=== PATIENT | female | born 1985 | race Caucasian/White ===

== ENCOUNTER 2016-11-26 22:30 | Emergency (ER) | payer BC ==
[~2016-11-26] VITALS: Ht 160 cm; Wt 50.0 kg
[~2016-11-26 22:30] MED LIST: ALPR0.5T PO; BC PILLS; LORA1TAB PO
[2016-11-26 22:51] VITALS: Ht 160 cm; Wt 50.0 kg
[2016-11-27 00:04] LABS: URINE BLOOD (Dip) POC Negative (NEGATIVE)
--- NOTE | 2016-11-27 00:10 | ERD ---
ER Documentation Chief Complaint Date/Time DATE: 11/27/16 TIME: 00:10 Chief Complaint Pelvic pain with discharge x 2 weeks HPI This a 31-year-old female who presents to the emergency department today complaining of some pelvic pain for the past 2 weeks, frequent urination and vaginal discharge. Patient states that she has also had painful intercourse and states she has 1 partner. Denies any fevers or chills, nausea or vomiting. ROS All systems reviewed and are negative except as per history of present illness. Medications Home Meds Active Scripts Metronidazole* (Metrogel*) 0.75% -45 Gram Gel, 1 APPLIC TOP BID for 7 Days, #1 TUB Prov:KELI GAYTAN PA-C 11/27/16 Naproxen* (Naprosyn*) 500 Mg Tablet, 500 MG PO BID Y for PAIN AND/OR INFLAMMATION, #30 TAB Prov:KELI GAYTAN PA-C 11/27/16 Lorazepam* (Lorazepam*) 1 Mg Tablet, 0.5-1 MG PO BID Y for ANXIETY, #18 TAB Prov:URSULA SHARPE MD 07/10/16 Alprazolam* (Xanax*) 0.5 Mg Tab, 0.5 MG PO Q8H Y for ANXIETY, #10 TAB Prov:VERONICA MCGINNIS PA-C 07/05/16 Reported Medications [Bc Pills] No Conflict Check 10/26/12 Allergies Allergies: Coded Allergies: No Known Allergy (Unverified , 10/26/12) PMhx/Soc Medical and Surgical Hx: pt denies Medical Hx, pt denies Surgical Hx History of Surgery: No Anesthesia Reaction: No Hx Neurological Disorder: No Hx Respiratory Disorders: No Hx Cardiac Disorders: No Hx Psychiatric Problems: No Hx Miscellaneous Medical Probl: No Hx Alcohol Use: No Hx Substance Use: No Hx Tobacco Use: No Physical Exam Vitals Vital Signs Date Time Temp Pulse Resp B/P Pulse Ox O2 Delivery O2 Flow Rate FiO2 11/26/16 22:51 97.4 90 18 140/88 100 Physical Exam Const: No acute distress Head: Atraumatic Eyes: Normal Conjunctiva ENT: Normal External Ears, Nose and Mouth. Neck: Full range of motion..~ No meningismus. Resp: Clear to auscultation bilaterally Cardio: Regular rate and rhythm, no murmurs Abd: Soft, suprapubic tenderness non distended. Normal bowel sounds no right lower quadrant pain. No tenderness to McBurney's. No left lower quadrant pain : Pelvic exam with thin milky discharge. No cervical motion tenderness Skin: No petechiae or rashes Neur: Awake and alert Psych: Normal Mood and Affect Results 24 hrs Laboratory Tests Test 11/27/16 00:06 Bedside Urine Blood Negative Bedside Urine Glucose (UA) Negative Bedside Urine Ketones (LAB) Negative Bedside Urine Leukocyte Esterase (L Negative Bedside Urine Nitrite (LAB) Negative Bedside Urine Protein (LAB) Negative Bedside Urine pH (LAB) 5.5 Patient: LUZMARIA GALAN : 1985 Age: 31 Sex: F MR #: [id number] DOS: 11/27/16 0000 Ordering MD: KELI GAYTAN PA-C Location: [facility] Room/Bed: PROCEDURE: US Non-OB Pelvis. CLINICAL INDICATION: Pelvic pain. TECHNIQUE: Multiple sonographic images of the pelvis were obtained utilizing a transabdominal and endovaginal technique. The images were reviewed on a PACS workstation. COMPARISON: None. FINDINGS: The uterus is visualized and measures 8.4 x 4.3 x 4.8 cm. The endometrial echo complex is normal and measures 8 mm. The right ovary measures 4.4 x 2.5 x 2.4 cm. There are two right ovarian cysts containing mildly echogenic material which measure up to 2.4 cm. The left ovary measures 3.1 x 1.1 x 1.4 cm. Blood flow is demonstrated to both ovaries. No adnexal masses are noted. There is a small volume of free fluid in the pelvic cul-de-sac. IMPRESSION: 1. Two right ovarian cysts containing mildly echogenic material which measure up to 2.4 cm, probably hemorrhagic cysts. A repeat ultrasound should be obtained 6-12 weeks to reassess these cysts. 2. Unremarkable appearance of uterus and left ovary. 3. Small volume of free pelvic fluid. RPTAT: HTAR .Emmanuel Fletcher MD, MD Date Time Electronically viewed and signed by .Emmanuel Fletcher MD, on 11/27/2016 01:51 .R/ CC: KELI GAYTAN PA-C Procedures/[facility] This a 31-year-old female who presents to the emergency department today complaining of some pelvic pain, painful intercourse, vaginal discharge for the past couple of weeks. I obtained a UA and test as well as a pelvic exam and a non-OB ultrasound UA is negative for infection test is negative US shows 2 right ovarian cyst containing mildly echogenic material which measures up to 2.4 cm probably hemorrhagic cyst. A repeat ultrasound was recommended in 6-12 weeks to reassess the cyst. There is unremarkable appearance of the uterus and left ovary. There is a small volume of free pelvic fluid. There are no adnexal masses. There is Doppler flow to both ovaries. This may be the cause of the patient's pelvic pain. I do not feel the patient requires laboratory workup at this time. She is afebrile and otherwise well-appearing. Low suspicion for ectopic , tubo-ovarian abscess or ovarian torsion Patient's pelvic exam showed some copious milky thin discharge. I will treat the patient prophylactically for BV. Patient has no cervical motion tenderness on physical exam and I do not feel the patient needs to be treated for PID at this time. I did send the urine for gonorrhea and chlamydia. She will also be given a prescription for Naprosyn for pain as well as MetroGel.. At this time the patient is stable for discharge and outpatient management. Patient should follow up with their PCP in the next 1-2 days. They may return to the emergency department sooner for any persistent or worsening of symptoms. Patient understood and agreed with the plan. Departure Diagnosis: Primary Impression: Pelvic pain Condition: Fair KELI GAYTAN PA-C Nov 27, 2016 00:10
--- NOTE | 2016-11-27 01:51 | RADRPT ---
PROCEDURE: US Non-OB Pelvis. CLINICAL INDICATION: Pelvic pain. TECHNIQUE: Multiple sonographic images of the pelvis were obtained utilizing a transabdominal and endovaginal technique. The images were reviewed on a PACS workstation. COMPARISON: None. FINDINGS: The uterus is visualized and measures 8.4 x 4.3 x 4.8 cm. The endometrial echo complex is normal and measures 8 mm. The right ovary measures 4.4 x 2.5 x 2.4 cm. There are two right ovarian cysts containing mildly ech ogenic material which measure up to 2.4 cm. The left ovary measures 3.1 x 1.1 x 1.4 cm. Blood flow is demonstrated to both ovaries. No adnexal masses are noted. There is a small volume of free fluid in the pelvic cul-de-sac. IMPRESSION: 1. Two right ovarian cysts containing mildly echogenic material which measure up to 2.4 cm, probabl y hemorrhagic cysts. A repeat ultrasound should be obtained 6-12 weeks to reassess these cysts. 2. Unremarkable appearance of uterus and left ovary. 3. Small volume of free pelvic fluid. RPTAT: HTAR .Emmanuel Fletcher MD, MD Date Time Electronically viewed and signed by .Emmanuel Fletcher MD, on 11/27/2016 01:51 .R/
[2016-11-27] MEDS ORDERED: NAPR-260 PO (02:07)
[2016-11-27] MEDS ORDERED: METGEL45 TOP (02:08)
[2016-11-27 02:35] VITALS: BP 130/80; PULSE 70; RESP 18; TEMP 98
== END 2016-11-27 02:35 | disposition home or self-care (01) ==
LOC: FTE 22:30
DX: R10.2 Pelvic and perineal pain (principal)
CPT/HCPCS: 76830; 76856; 81003; 87591

== ENCOUNTER 2016-11-30 04:09 | Emergency (ER) | payer BC ==
[~2016-11-30] VITALS: Ht 160 cm; Wt 49.2 kg
[~2016-11-30 04:09] MED LIST changes: +METGEL45 TOP; +NAPR-260 PO
[2016-11-30 04:13] VITALS: Ht 160 cm; Wt 49.2 kg
--- NOTE | 2016-11-30 05:13 | ERD ---
ER Documentation Chief Complaint Date/Time DATE: 11/30/16 TIME: 05:08 Chief Complaint anxious, states having a reaction from pill she took at 2330(escitalopram) HPI 31-year-old female presents here in emergency department for feeling anxious tonight. Patient states that she has history of anxiety, takes Ativan for this, patient felt much better after taking Ativan. Patient states that she started to feel more anxious after taking Lexapro last night. Patient denies homicidal or suicidal ideations. Patient denies any other symptoms. Patient states symptoms are improved. Patient denies any chest pain or palpitations. Patient denies any dizziness. ROS All systems reviewed and are negative except as per history of present illness. Medications Home Meds Active Scripts Metronidazole* (Metrogel*) 0.75% -45 Gram Gel, 1 APPLIC TOP BID for 7 Days, #1 TUB Prov:KELI GAYTAN PA-C 11/27/16 Naproxen* (Naprosyn*) 500 Mg Tablet, 500 MG PO BID Y for PAIN AND/OR INFLAMMATION, #30 TAB Prov:KELI GAYTAN PA-C 11/27/16 Lorazepam* (Lorazepam*) 1 Mg Tablet, 0.5-1 MG PO BID Y for ANXIETY, #18 TAB Prov:URSULA SHARPE MD 07/10/16 Alprazolam* (Xanax*) 0.5 Mg Tab, 0.5 MG PO Q8H Y for ANXIETY, #10 TAB Prov:VERONICA MCGINNIS PA-C 07/05/16 Reported Medications [Bc Pills] No Conflict Check 10/26/12 Allergies Allergies: Coded Allergies: No Known Allergy (Unverified , 10/26/12) PMhx/Soc Medical and Surgical Hx: pt denies Surgical Hx History of Surgery: No Anesthesia Reaction: No Hx Neurological Disorder: No Hx Respiratory Disorders: No Hx Cardiac Disorders: No Hx Psychiatric Problems: Yes (anxiety) Hx Miscellaneous Medical Probl: No Hx Alcohol Use: No Hx Substance Use: No Hx Tobacco Use: No FmHx Family History: No coronary disease, No diabetes, No other Physical Exam Vitals Vital Signs Date Time Temp Pulse Resp B/P Pulse Ox O2 Delivery O2 Flow Rate FiO2 11/30/16 05:14 98.1 91 16 125/72 99 11/30/16 04:13 97.0 115 20 130/77 99 Physical Exam GENERAL: The patient is well developed and appropriate for usual state of health, in no apparent distress. CHEST: Clear to auscultation bilaterally. There are no rales, wheezes or rhonchi. HEART: Regular rate and rhythm. No murmurs, clicks, rubs or gallops. No S3 or S4. ABDOMEN: Soft, nontender and nondistended. Good bowel sounds. No rebound or guarding. No gross peritonitis. No gross organomegaly or masses. No Underwood sign or McBurney point tenderness. BACK: No midline or flank tenderness. EXTREMITIES: Equal pulses bilaterally. There is no peripheral clubbing, cyanosis or edema. No focal swelling or erythema. Full range of motion. Grossly neurovascularly intact. NEURO: Alert and oriented. Cranial nerves 2-12 intact. Motor strength in all 4 extremities with 5/5 strength. Sensation grossly intact. Normal speech and gait. SKIN: There is no apparent rash or petechia. The skin is warm and dry. HEMATOLOGIC AND LYMPHATIC: There is no evidence of excessive bruising or lymphedema. No gross cervical, axillary, or inguinal lymphadenopathy. PSYCHIATRIC: Patient is calm and cooperative, not verbalizing homicidal or suicidal ideations. Procedures/MDM Medical decision making: Patient's symptoms most likely is consistent with a medication reaction from Lexapro, patient also has anxiety most likely had a attack of it last night. Patient feels better now, patient was advised to see primary care doctor for possible changing of medications. Patient does not have any symptoms of acute psychiatric emergencies, suicidal ideations or suicidal ideation. No psychiatric emergencies at this time. Patient was advised to follow with primary care doctor today and return for homicidal, suicidal ideations, or any other worsening symptoms. Departure Diagnosis: Primary Impression: Anxiety Additional Impression: Medication reaction Encounter type: initial encounter Qualified Code: T88.7XXA - Medication reaction, initial encounter Condition: Stable Patient Instructions: Anxiety Reaction Additional Instructions: talk to pmd for change medication TRELL ROY NP Nov 30, 2016 05:13
[2016-11-30 05:14] VITALS: BP 125/72; PULSE 91; RESP 16; TEMP 98.1
== END 2016-11-30 05:13 | disposition home or self-care (01) ==
LOC: FTE 04:09
DX: F41.9 Anxiety disorder, unspecified (principal); T43.225A Adverse effect of selective serotonin reuptake inhibitors, initial encounter
CPT/HCPCS: 99282

== ENCOUNTER 2017-01-06 19:08 | Observation (INO) | payer BC ==
[~2017-01-06] VITALS: Ht 157.5 cm; Wt 49.0 kg
[2017-01-06] MEDS ORDERED: ACETAMINOPHEN 325 MG TAB PO STA (19:53)
[2017-01-06 20:14] LABS: ADD UMIC YES; URINE BILIRUBIN (Dip) NEGATIVE (NEGATIVE); URINE BLOOD (Dip) NEGATIVE (NEGATIVE); URINE COLOR LT. YELLOW (YELLOW); URINE GLUCOSE (Dip) NEGATIVE (NEGATIVE); URINE KETONES (Dip) NEGATIVE (NEGATIVE); URINE LEUKOCYTE ESTERASE (Dip) TRACE (NEGATIVE); URINE NITRITE (Dip) NEGATIVE (NEGATIVE); URINE TOTAL PROTEIN (Dip) NEGATIVE (NEGATIVE); URINE UROBILINOGEN (Dip) 0.2 E.U./dL (0.1-1.0)
[2017-01-06 20:30] LABS: SQUAMOUS EPITHELIAL CELL,UR FEW; URINE RBCS NONE SEEN /HPF (0)
[2017-01-06 20:38] LABS: ADD SCAN DIFF NO
[2017-01-06 20:40] LABS: BASOPHILS % 0.6 % (0.0-2.0); EOSINOPHILS # 0.1 10^3/ul (0.0-0.5); EOSINOPHILS % 2.1 % (0.0-7.0); HEMATOCRIT 36.1 % (37.0-47.0); HEMOGLOBIN 12.1 g/dl (12.0-16.0); LYMPHOCYTES # 1.6 10^3/ul (0.8-2.9); LYMPHOCYTES % 30.6 % (15.0-51.0); MEAN CORPUSCULAR HEMOGLOBIN 31.3 pg (29.0-33.0); MEAN CORPUSCULAR HGB CONC 33.5 g/dl (32.0-37.0); MEAN CORPUSCULAR VOLUME 93.3 fl (82.0-101.0); MEAN PLATELET VOLUME 9.8 fl (7.4-10.4); MONOCYTE # 0.6 10^3/ul (0.3-0.9); MONOCYTES % 11.5 % (0.0-11.0); NEUTROPHIL # 2.9 10^3/ul (1.6-7.5); PLATELET COUNT 263 10^3/UL (140-415); RED BLOOD COUNT 3.87 10^6/ul (4.20-5.40); RED CELL DISTRIBUTION WIDTH 12.8 % (11.5-14.5); WHITE BLOOD COUNT 5.2 10^3/ul (4.8-10.8)
--- NOTE | 2017-01-06 21:15 | RADRPT ---
PROCEDURE: US OB. CLINICAL INDICATION: Vaginal bleeding and at 31 year-old female. TECHNIQUE: Transabdominal and transvaginal views of the pelvis are available for review. COMPARISON: No prior studies are available for comparison. FINDINGS: The uterus is anteflexed and measures 9.1 cm sagittal by 5.3 cm AP by 5.6 cm in width. The endometrial stripe is irregular and thickened measuring 11 mm. There are cystic fluid collectio ns within the endometrial canal with no pole or cardiac activity identified. The right ovary measures 2.1 cm by 3.4 x 2.3 cm. A hemorrhagic right ovarian cyst or corpus luteal cyst of measuring 2.2 x 1.6 x 1.8 cm is identified with increased peripheral blood flow. The left ovary measured 2.3 x 2 by 1.5 cm. There is free fluid in the cul-de-sac. No abnormal adne xal mass was observed. IMPRESSION: 1. No gestational sac or pole is identified. The endometrium is thickened with cystic areas present. An incomplete , trophoblastic disease or ectopic can be considered. Whe n no IUP is demonstrated, correlation with serial beta HCG is recommended. With a quantitative beta HCG >2000, the differential diagnosis includes spontaneous or ecto pic . Therefore, clinical follow-up is recommended including correlation with serial quant itative beta HCG levels and repeat sonogram with rising levels and/or/or localized or persistent isabella n. With quantitative beta HCG < 2000, the differential diagnosis includes early normal IVP or spontaneo us or ectopic . Therefore, clinical follow-up is recommended including correlatio n with serial quantitative beta HCG levels and arising levels and / or persistent pain. 2. Right corpus luteal cyst of . 3. No abnormal adnexal mass is identified but some free fluid is present in the cul-de-sac. 4. Findings were phoned to Dr. Quezada immediately following interpretation of the study. RPTAT:AAJJ Physician Giovanni Date Time Electronically viewed and signed by Physician Giovanni on 01/06/2017 21:15 /
--- NOTE | 2017-01-06 21:55 | ERD ---
ER Documentation Chief Complaint Date/Time DATE: 01/06/17 TIME: 21:55 Chief Complaint pelvic pain with Flank pain and AP and ? weeks HPI This 31-year-old female patient presents to the emergency department with complaint of pelvic pain, vaginal bleeding, and back cramping. Patient is approximately 5-6 weeks . Reports pink discharge for the last 3 days prior to today. Patient reports discharge stopped today but she developed back pain, pelvic pain, and cramping, pain is 5/10 on pain scale. . Patient reports that she has been seen by her primary physician and they were oral to gynecology was generated. Patient is waiting to have referral come in the mail. Patient denies nausea, vomiting, dysuria, reports frequency. Patient also mentioned she has history of hypertension and was taken off her blood pressure medication by her primary care physician related to . Patient reports she has been having intermittent pregnancies. States she stopped caffeine over 6 months ago. ROS All systems reviewed and are negative except as per history of present illness. Medications Home Meds Active Scripts Metronidazole* (Metrogel*) 0.75% -45 Gram Gel, 1 APPLIC TOP BID for 7 Days, #1 TUB Prov:KELI GAYTAN PA-C 11/27/16 Naproxen* (Naprosyn*) 500 Mg Tablet, 500 MG PO BID Y for PAIN AND/OR INFLAMMATION, #30 TAB Prov:KELI GAYTAN PA-C 11/27/16 Lorazepam* (Lorazepam*) 1 Mg Tablet, 0.5-1 MG PO BID Y for ANXIETY, #18 TAB Prov:URSULA SHARPE MD 07/10/16 Alprazolam* (Xanax*) 0.5 Mg Tab, 0.5 MG PO Q8H Y for ANXIETY, #10 TAB Prov:VERONICA MCGINNIS PA-C 07/05/16 Reported Medications [Bc Pills] No Conflict Check 10/26/12 Allergies Allergies: Coded Allergies: No Known Allergy (Unverified , 10/26/12) PMhx/Soc History of Surgery: No Anesthesia Reaction: No Hx Neurological Disorder: No Hx Respiratory Disorders: No Hx Cardiac Disorders: No Hx Psychiatric Problems: Yes (anxiety) Hx Miscellaneous Medical Probl: No Hx Alcohol Use: No Hx Substance Use: No Hx Tobacco Use: No Smoking Status: Never smoker Physical Exam Vitals Vital Signs Date Time Temp Pulse Resp B/P Pulse Ox O2 Delivery O2 Flow Rate FiO2 01/06/17 19:22 98.8 73 20 149/88 100 Physical Exam Const: No acute distress Head: Atraumatic Eyes: Normal Conjunctiva, no pallor, EOMI ENT: Normal External Ears, Nose and Mouth. Mucous membranes moist Neck: Resp: Cardio: Abd: Abdomen symmetric, pelvic tenderness, no CVA tenderness Skin: No petechiae or rashes Back: No midline or flank tenderness Ext: Neur: Awake and alert Psych: Normal Mood and Affect Result Diagram: 01/06/172004 Results 24 hrs Laboratory Tests Test 01/06/17 19:58 01/06/17 20:05 Urine Color LT. YELLOW Urine Clarity CLEAR Urine pH 7.0 Urine Specific Grawn <=1.005 Urine Ketones NEGATIVE Urine Nitrite NEGATIVE Urine Bilirubin NEGATIVE Urine Urobilinogen 0.2 E.U./dL Urine Leukocyte Esterase TRACE Urine Microscopic RBC NONE SEEN/HPF Urine Microscopic WBC 0-2/HPF Urine Squamous Epithelial Cells FEW Urine Hemoglobin NEGATIVE Urine Glucose NEGATIVE% Urine Total Protein NEGATIVE White Blood Count 5.210^3/ul Red Blood Count 3.8710^6/ul Hemoglobin 12.1g/dl Hematocrit 36.1% Mean Corpuscular Volume 93.3fl Mean Corpuscular Hemoglobin 31.3pg Mean Corpuscular Hemoglobin Concent 33.5g/dl Red Cell Distribution Width 12.8% Platelet Count 11415^3/UL Mean Platelet Volume 9.8fl Neutrophils % 55.0% Lymphocytes % 30.6% Monocytes % 11.5% Eosinophils % 2.1% Basophils % 0.6% Nucleated Red Blood Cells % 0.0/100WBC Neutrophils # 2.910^3/ul Lymphocytes # 1.610^3/ul Monocytes # 0.610^3/ul Eosinophils # 0.110^3/ul Basophils # 0.010^3/ul Nucleated Red Blood Cells # 0.010^3/ul Beta HCG, Quantitative 26466.0mIU/ml Current Medications Medications (Trade) Dose Ordered Sig/Consuelo Route PRN Reason Start Time Stop Time Status Last Admin Dose Admin Acetaminophen (Tylenol Tab) 650 mg ONCE STAT PO 01/06/17 19:53 01/06/17 19:55 DC 3/30/17 19:59 Interpretation Text Urinalysis negative for evidence of infection, CBC negative for hemorrhage or acute anemia, beta hCG 15166.0 mm GENEVIEVE/mL Procedures/MDM ROCEDURE: US OB. CLINICAL INDICATION: Vaginal bleeding and at 31 year-old female. TECHNIQUE: Transabdominal and transvaginal views of the pelvis are available for review. COMPARISON: No prior studies are available for comparison. FINDINGS: The uterus is anteflexed and measures 9.1 cm sagittal by 5.3 cm AP by 5.6 cm in width. The endometrial stripe is irregular and thickened measuring 11 mm. There are cystic fluid collections within the endometrial canal with no pole or cardiac activity identified. The right ovary measures 2.1 cm by 3.4 x 2.3 cm. A hemorrhagic right ovarian cyst or corpus luteal cyst of measuring 2.2 x 1.6 x 1.8 cm is identified with increased peripheral blood flow. The left ovary measured 2.3 x 2 by 1.5 cm. There is free fluid in the cul-de- sac. No abnormal adnexal mass was observed. IMPRESSION: 1. No gestational sac or pole is identified. The endometrium is thickened with cystic areas present. An incomplete , trophoblastic disease or ectopic can be considered. When no IUP is demonstrated, correlation with serial beta HCG is recommended. With a quantitative beta HCG >2000, the differential diagnosis includes spontaneous or ectopic . Therefore, clinical follow-up is recommended including correlation with serial quantitative beta HCG levels and repeat sonogram with rising levels and/or/or localized or persistent pain. With quantitative beta HCG < 2000, the differential diagnosis includes early normal IVP or spontaneous or ectopic . Therefore, clinical follow-up is recommended including correlation with serial quantitative beta HCG levels and arising levels and / or persistent pain. 2. Right corpus luteal cyst of . 3. No abnormal adnexal mass is identified but some free fluid is present in the cul-de-sac. 4. Findings were phoned to Dr. Quezada immediately following interpretation of the study. RPTAT:AAJJ Physician Giovanni Date Time Electronically viewed and signed by Physician Giovanni on 01/06/2017 21:15 JM/ CC: JAYDEN QUEZADA 31-year-old female presenting to emergency department today with vaginal bleeding. Patient is experiencing pelvic pain, back pain. Differential diagnosis includes threatened , tubal , intrauterine .beta hCG 46120.0 mm GENEVIEVE/mL, ultrasound findings of no gestational sac or pole., Endometrium is thickened with cystic areas present. An incomplete , trophoblastic disease or ectopic can be considered. 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 Jensen, case discussed. Physician comes to emergency department to consult, informed consent for elective D&C. Patient scheduled for OR. All care turned over to Dr. Jensen at this time. Departure Diagnosis: Primary Impression: Missed JAYDEN QUEZADA Jan 06, 2017 21:55
--- NOTE | 2017-01-06 23:25 | HP ---
Date/Time of Note Date/Time of Note DATE: 01/06/17 TIME: 23:19 Assessment/Plan VTE Prophylaxis VTE Prophylaxis Intervention: ambulation Assessment/Plan Chief Complaint/Hosp Course 31 yo P2 @ 6wks by LMP, w no IUP, bhcg 50K, possible molar vs SAB vs ectopic Will admit for suction D&C. After D&C, patient to return in 2 days for repeat bhcg and review of pathology Problems: HPI/ROS Admit Date/Time Admit Date/Time 01/06/17, 11:19pm Hx of Present Illness 31 yo P2 @ 5-6 wks by LMP 11/15, c/o pelvic pain and vaginal spotting x 3 days, sono shows cystic structures in uterus, possible SAB vs molar vs ectopic; bhcg is 51,040 POB- x 2 PMH- HTN, taken off meds by her primary doctor PSH- none Meds- none NKDA PMH/Family/Social Past Medical History Medical History: hypertension Past Surgical History Past Surgical Hx: no surgical history Social History Alcohol Use: none Smoking Status: Never smoker Drug Use: none Exam/Review of Systems Vital Signs Vitals Vital Signs Date Time Temp Pulse Resp B/P Pulse Ox O2 Delivery O2 Flow Rate FiO2 01/06/17 19:22 98.8 73 20 149/88 100 Exam Constitutional: alert, oriented, well developed Labs Result Diagram: 01/06/17 HOLLY DAMON MD Jan 06, 2017 23:24
[2017-01-07] VITALS (14 sets, daily range): BP systolic 106–138; BP diastolic 56–86; PULSE 78–98; RESP 12–35; Ht 157.5 cm; Wt 49.0 kg
[2017-01-07] MEDS ORDERED: MIDAZOLAM 1 MG/ML 2 ML INJ ONE (00:41)
[2017-01-07] MEDS ORDERED: FENTAnyl 50 MCG/ML VIAL ONE (00:41)
[2017-01-07] MEDS ORDERED: METOCLOPRAMIDE 10 MG INJ ONE (00:54)
[2017-01-07] MEDS ORDERED: ONDANSETRON 4 MG INJ ONE (00:54)
[2017-01-07] MEDS ORDERED: IBUPROFEN 800 MG TAB PO PRN (01:30)
--- NOTE | 2017-01-07 01:54 | OPR ---
Date/Time of Note Date/Time of Note DATE: 01/07/17 TIME: 01:51 Operative Report Free Text/Dictation 31 yo P2 @ 6wks, w possible incomplete SAB vs molar vs ectopic Procedure Date: Jan 07, 2017 Preoperative Diagnosis 31 yo P2 @ 6wks, w possible incomplete SAB vs molar vs ectopic Postoperative Diagnosis 31 yo P2 @ 6wks, w possible incomplete SAB vs molar vs ectopic Operation Performed Suction D&C Surgeon: HOLLY DE LEÓN MD Anesthesia: general Estimated Blood Loss: 10 - 50 ml's Specimens POC Pt Condition Post Procedure: stable Disposition: other Operative\Procedure Findings some tissue noted from suction cannister; will send for pathology Procedure Description patient prepped and draped in trendelenberg position w legs in stirrups. Examined under anesthesia and found to have 7 wks anteverted uterus. Cervix dilated and suction D&C performed. Sharp currettage performed. Tissue noted in suction cannula HOLLY DE LEÓN MD Jan 07, 2017 01:54
[2017-01-07] MEDS ORDERED: LIDOCAINE 2% (SDV) 5 ML INJ ONE (07:00)
[2017-01-07] MEDS ORDERED: SUCCINYLCHOLINE CHLORIDE 100 MG/5 ML SYG IV ONE (07:00)
[2017-01-07] MEDS ORDERED: PROPOFOL 200 MG INJ ONE (07:00)
--- NOTE | 2017-01-07 15:38 | QN ---
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 Jan 07, 2017 15:38
--- NOTE | 2017-01-07 17:38 | RADRPT ---
PROCEDURE: US Pelvis. TECHNIQUE: The pelvis was evaluated with transvaginal sonography in the axial and sagittal planes. COMPARISON: Pelvic ultrasound dated 01/06/2017 which demonstrated thickened endometrium with cysti c region is present. FINDINGS: Uterus: 9.4 x 5.3 x 5.6 cm. Endometrium: 16.6 mm. Right ovary: 2.9 x 1.5 x 2.2 cm. Left ovary: Not visualized. Uterine masses: There is heterogeneity of the endometrium with regions of vascularity. This may ind icate retained products of conception. Ovarian masses: The right ovary is normal. The left ovary is not visualized. Color Doppler and puls ed Doppler sonography demonstrate normal flow to the right ovary. Other pelvic masses: None. Free fluid: None. IMPRESSION: 1. Heterogeneity of the endometrium with regions of vascularity. This may indicate retained produc ts of conception. Clinical correlation and follow up is advised. 2. Left ovary not visualized. 3. Otherwise unremarkable study. RPTAT: QQ .Brayden Coker MD, MD Date Time Electronically viewed and signed by .Brayden Coker MD, on 01/07/2017 17:37 .R/
[2017-01-08 06:31] LABS: ADD SCAN DIFF NO
[2017-01-08 06:41] LABS: BASOPHILS % 0.5 % (0.0-2.0); EOSINOPHILS # 0.2 10^3/ul (0.0-0.5); EOSINOPHILS % 3.8 % (0.0-7.0); HEMOGLOBIN 11.4 g/dl (12.0-16.0); LYMPHOCYTES # 1.6 10^3/ul (0.8-2.9); LYMPHOCYTES % 41.1 % (15.0-51.0); MEAN CORPUSCULAR HEMOGLOBIN 31.4 pg (29.0-33.0); MEAN CORPUSCULAR HGB CONC 33.5 g/dl (32.0-37.0); MEAN CORPUSCULAR VOLUME 93.7 fl (82.0-101.0); MEAN PLATELET VOLUME 10.1 fl (7.4-10.4); MONOCYTE # 0.5 10^3/ul (0.3-0.9); MONOCYTES % 13.6 % (0.0-11.0); NEUTROPHIL # 1.6 10^3/ul (1.6-7.5); NEUTROPHILS % 40.7 % (39.0-77.0); PLATELET COUNT 218 10^3/UL (140-415); RED BLOOD COUNT 3.63 10^6/ul (4.20-5.40)
[2017-01-08 07:35] VITALS: BP 119/64; RESP 20
--- NOTE | 2017-01-08 18:08 | PN ---
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 for follow-up in 2-3 days Subjective 24 Hr Interval Summary Patient status post suction D&C Patient stable and afebrile She has no complaints today Constitutional: no complaints Pain Control: well controlled Exam/Review of Systems Vital Signs Vitals Vital Signs Date Time Temp Pulse Resp B/P Pulse Ox O2 Delivery O2 Flow Rate FiO2 01/08/17 07:36 98.4 01/08/17 07:35 71 20 119/64 98 01/07/17 07:30 Room Air 01/07/17 02:33 2.0 Intake and Output 01/07/17 01/07/17 01/08/17 14:59 22:59 06:59 Intake Total 960 ml Output Total 1300 ml 1250 ml Balance -1300 ml -290 ml Exam Free Text/Dictation Beta-hCG has significantly dropped Quantitative beta-hCG was 51,000 prior to surgery and postoperatively it dropped to 21,000 Quantitative beta-hCG is 12,000 today Constitutional: alert, oriented, well developed Results Result Diagram: 01/08/17 0536 JOSETTE SOLIS Jan 08, 2017 18:08
--- NOTE | 2017-01-08 18:16 | DS ---
Date/Time of Note Date/Time of Note DATE: 01/08/17 TIME: 18:12 Discharge Summary Admission/Discharge Info Admit Date/Time Jan 07, 2017 at 01:11 Discharge Date/Time Jan 08, 2017 at 16:10 Final Diagnosis Spontaneous AB Patient Condition: Good Procedures Status post suction D&C Hx of Present Illness 31 yo P2 @ 5-6 wks by LMP 2/6, c/o pelvic pain and vaginal spotting x 3 days, sono shows cystic structures in uterus, possible SAB vs molar vs ectopic; bhcg is 51,040 POB- x 2 PMH- HTN, taken off meds by her primary doctor PSH- none Meds- none NKDA Hospital Course Patient most likely with spontaneous She is stable and doing well Beta-hCG significantly dropped postoperatively to 21,000 and today on January 08 is 12,000 Home Meds Active Scripts Metronidazole* (Metrogel*) 0.75% -45 Gram Gel, 1 APPLIC TOP BID for 7 Days, #1 TUB Prov:KELI GAYTAN PA-C 11/27/16 Naproxen* (Naprosyn*) 500 Mg Tablet, 500 MG PO BID Y for PAIN AND/OR INFLAMMATION, #30 TAB Prov:KELI GAYTAN PA-C 11/27/16 Lorazepam* (Lorazepam*) 1 Mg Tablet, 0.5-1 MG PO BID Y for ANXIETY, #18 TAB Prov:URSULA SHARPE MD 07/10/16 Alprazolam* (Xanax*) 0.5 Mg Tab, 0.5 MG PO Q8H Y for ANXIETY, #10 TAB Prov:VERONICA MCGINNIS PA-C 07/05/16 Reported Medications [Bc Pills] No Conflict Check 10/26/12 Follow-up Plan Patient was instructed to follow-up in 2 days for repeat quantitative beta-hCG Pending Labs Laboratory Tests Test 01/08/17 05:36 White Blood Count 4.010^3/ul (4.8-10.8) Red Blood Count 3.6310^6/ul (4.20-5.40) Hemoglobin 11.4g/dl (12.0-16.0) Hematocrit 34.0% (37.0-47.0) Mean Corpuscular Volume 93.7fl (82.0-101.0) Mean Corpuscular Hemoglobin 31.4pg (29.0-33.0) Mean Corpuscular Hemoglobin Concent 33.5g/dl (32.0-37.0) Red Cell Distribution Width 13.0% (11.5-14.5) Platelet Count 40523^3/UL (140-415) Mean Platelet Volume 10.1fl (7.4-10.4) Neutrophils % 40.7% (39.0-77.0) Lymphocytes % 41.1% (15.0-51.0) Monocytes % 13.6% (0.0-11.0) Eosinophils % 3.8% (0.0-7.0) Basophils % 0.5% (0.0-2.0) Nucleated Red Blood Cells % 0.0/100WBC (0.0-0.0) Neutrophils # 1.610^3/ul (1.6-7.5) Lymphocytes # 1.610^3/ul (0.8-2.9) Monocytes # 0.510^3/ul (0.3-0.9) Eosinophils # 0.210^3/ul (0.0-0.5) Basophils # 0.010^3/ul (0.0-0.1) Nucleated Red Blood Cells # 0.010^3/ul (0.0-0.0) Beta HCG, Quantitative 99405.0mIU/ml JOSETTE SOLIS Jan 08, 2017 18:16
== END 2017-01-08 16:10 | disposition home or self-care (01) ==
LOC: FTE 19:08 → SDS 01-07 00:03 → MS2 01-07 01:11
PROVIDERS: ADMIT Obstetrics & Gynecology; ATTEND Obstetrics & Gynecology
DX: O03.9 Complete or unspecified spontaneous abortion without complication (principal); I10 Essential (primary) hypertension; F41.9 Anxiety disorder, unspecified
CPT/HCPCS: 36415; 59812; 76801; 76817; 76830; 81001; 84702; 85025; 86850; 86900; 86901; 88305; 99285; J0330; J2250; J2405; J2765; J3010; Z7500; Z7512; Z7610; 81003; G0378

== ENCOUNTER 2017-01-10 00:05 | Emergency (ER) | payer BC ==
[~2017-01-10] VITALS: Ht 162.6 cm; Wt 48.5 kg
[2017-01-10 00:11] VITALS: Ht 162.6 cm; Wt 48.5 kg
--- NOTE | 2017-01-10 02:34 | ERD ---
ER Documentation Chief Complaint Date/Time DATE: 01/10/17 TIME: 02:33 Chief Complaint requesting serum beta hcg as instructed by her pmd HPI 31-year-old female presents here in emergency department for repeat beta hCG quantitative, was advised to return here in the emergency department for repeat testing after a suction dilatation and curettage. Patient denies any pain at this time. Patient denies any symptoms. Patient denies any vaginal bleeding. ROS All systems reviewed and are negative except as per history of present illness. Medications Home Meds Active Scripts Metronidazole* (Metrogel*) 0.75% -45 Gram Gel, 1 APPLIC TOP BID for 7 Days, #1 TUB Prov:KELI GAYTAN PA-C 11/27/16 Naproxen* (Naprosyn*) 500 Mg Tablet, 500 MG PO BID Y for PAIN AND/OR INFLAMMATION, #30 TAB Prov:KELI GAYTAN PA-C 11/27/16 Lorazepam* (Lorazepam*) 1 Mg Tablet, 0.5-1 MG PO BID Y for ANXIETY, #18 TAB Prov:URSULA SHARPE MD 07/10/16 Alprazolam* (Xanax*) 0.5 Mg Tab, 0.5 MG PO Q8H Y for ANXIETY, #10 TAB Prov:VERONICA MCGINNIS PA-C 07/05/16 Reported Medications [Bc Pills] No Conflict Check 10/26/12 Allergies Allergies: Coded Allergies: No Known Allergy (Unverified , 10/26/12) PMhx/Soc History of Surgery: Yes (SUCTION D&C) Anesthesia Reaction: No Hx Neurological Disorder: No Hx Respiratory Disorders: No Hx Cardiac Disorders: No Hx Psychiatric Problems: No Hx Miscellaneous Medical Probl: No Hx Alcohol Use: No Hx Substance Use: No Hx Tobacco Use: No Smoking Status: Never smoker FmHx Family History: No coronary disease, No diabetes, No other Physical Exam Vitals Vital Signs Date Time Temp Pulse Resp B/P Pulse Ox O2 Delivery O2 Flow Rate FiO2 01/10/17 00:11 96.7 88 20 145/91 100 Physical Exam GENERAL: The patient is well developed and appropriate for usual state of health, in no apparent distress. CHEST: Clear to auscultation bilaterally. There are no rales, wheezes or rhonchi. HEART: Regular rate and rhythm. No murmurs, clicks, rubs or gallops. No S3 or S4. ABDOMEN: Soft, nontender and nondistended. Good bowel sounds. No rebound or guarding. No gross peritonitis. No gross organomegaly or masses. No Underwood sign or McBurney point tenderness. BACK: No midline or flank tenderness. EXTREMITIES: Equal pulses bilaterally. There is no peripheral clubbing, cyanosis or edema. No focal swelling or erythema. Full range of motion. Grossly neurovascularly intact. NEURO: Alert and oriented. Cranial nerves 2-12 intact. Motor strength in all 4 extremities with 5/5 strength. Sensation grossly intact. Normal speech and gait. SKIN: There is no apparent rash or petechia. The skin is warm and dry. HEMATOLOGIC AND LYMPHATIC: There is no evidence of excessive bruising or lymphedema. No gross cervical, axillary, or inguinal lymphadenopathy. Results 24 hrs Laboratory Tests Test 01/10/17 02:31 Beta HCG, Quantitative 7006.5mIU/ml Procedures/MDM Medical decision making: Patient's beta hCG quantitative is lower, consistent with and removal of contents. At this time, no symptoms of any sepsis, no hemodynamic instability noted. Low suspicion for growing at this time. Patient was advised to follow-up with primary care doctor in 1-2 days for reevaluation of symptoms. Patient was advised to return to emergency department for worsening symptoms. Departure Diagnosis: Primary Impression: Encounter for laboratory test Condition: Stable Patient Instructions: Dilation and Curettage (D and C) TRELL ROY NP Jan 10, 2017 02:34
== END 2017-01-10 04:00 | disposition home or self-care (01) ==
LOC: FTE 00:05
DX: Z00.00 Encounter for general adult medical examination without abnormal findings (principal)
CPT/HCPCS: 84702; 99282

== ENCOUNTER 2017-02-02 13:38 | Emergency (ER) | payer BC ==
[~2017-02-02] VITALS: Ht 157.5 cm; Wt 48.0 kg
[2017-02-02 13:40] VITALS: Ht 157.5 cm; Wt 48.0 kg
[2017-02-02 15:07] LABS: ADD SCAN DIFF NO
[2017-02-02 15:11] LABS: BASOPHILS % 0.5 % (0.0-2.0); EOSINOPHILS # 0.1 10^3/ul (0.0-0.5); EOSINOPHILS % 1.7 % (0.0-7.0); HEMOGLOBIN 12.8 g/dl (12.0-16.0); LYMPHOCYTES # 1.2 10^3/ul (0.8-2.9); LYMPHOCYTES % 29.3 % (15.0-51.0); MEAN CORPUSCULAR HEMOGLOBIN 32.2 pg (29.0-33.0); MEAN CORPUSCULAR HGB CONC 34.6 g/dl (32.0-37.0); MEAN PLATELET VOLUME 10.1 fl (7.4-10.4); MONOCYTE # 0.4 10^3/ul (0.3-0.9); MONOCYTES % 8.6 % (0.0-11.0); NEUTROPHIL # 2.5 10^3/ul (1.6-7.5); NEUTROPHILS % 59.7 % (39.0-77.0); PLATELET COUNT 222 10^3/UL (140-415); RED BLOOD COUNT 3.98 10^6/ul (4.20-5.40); RED CELL DISTRIBUTION WIDTH 12.4 % (11.5-14.5); WHITE BLOOD COUNT 4.2 10^3/ul (4.8-10.8)
[2017-02-02 15:21] LABS: INR 0.97; PROTIME 12.9 Sec (12.2-14.2)
[2017-02-02 15:22] LABS: PARTIAL THROMBOPLASTIN TIME 30.3 Sec (25.0-35.0)
[2017-02-02 15:32] LABS: CHLORIDE 101 mmol/L (97-110); SODIUM 141 mmol/L (135-144)
--- NOTE | 2017-02-02 15:32 | RADRPT ---
PROCEDURE: XR Chest. CLINICAL INDICATION: chest pain TECHNIQUE: Single frontal view of the chest was obtained COMPARISON: 07/10/2016 FINDINGS: The heart and mediastinum are within normal limits. The lungs are clear. There is no pleural effusion or pneumothorax. There is dextroscoliosis of the thoracic spine. RPTAT: AA IMPRESSION: No acute disease. .Rosendo Ramey MD, MD Date Time Electronically viewed and signed by .Rosendo Ramey MD, on 02/02/2017 15:32 .S/
[2017-02-02 15:34] LABS: CREATININE 0.74 mg/dl (0.44-1.00)
[2017-02-02 15:35] LABS: ANION GAP 16 (8-16); BLOOD UREA NITROGEN 15 mg/dl (7-20); CALCIUM 9.8 mg/dl (8.4-10.2); CARBON DIOXIDE 28 mmol/L (21-31); GLUCOSE 96 mg/dl (70-220)
[2017-02-02 15:49] LABS: TROPONIN-I < 0.012 ng/ml (0.00-0.12)
[2017-02-02] MEDS ORDERED: IBUP-1542 PO (15:53)
--- NOTE | 2017-02-02 15:57 | ERD ---
ER Documentation Chief Complaint Date/Time DATE: 02/02/17 TIME: 15:54 Chief Complaint CHEST PAIN, PALPITATIONS, HEAD PRESSURE HPI Patient is a 31-year-old female who presents complaining of chest pain for the past 2 weeks. She has no cardiac past medical history. She also has pain that radiates in her left upper extremity. She denies any trauma. Denies any numbness or tingling. She states she does not drink or use drugs. Denies cough or fever. Denies diaphoresis. States that sometimes she wakes up feeling like her heart is racing quickly. ROS All systems reviewed and are negative except as per history of present illness. Medications Home Meds Active Scripts Ibuprofen* (Motrin*) 600 Mg Tab, 600 MG PO QID, #30 TAB Prov:RADHA WEBSTER PA-C 02/02/17 Metronidazole* (Metrogel*) 0.75% -45 Gram Gel, 1 APPLIC TOP BID for 7 Days, #1 TUB Prov:KELI GAYTAN PA-C 11/27/16 Naproxen* (Naprosyn*) 500 Mg Tablet, 500 MG PO BID Y for PAIN AND/OR INFLAMMATION, #30 TAB Prov:KELI GAYTAN PA-C 11/27/16 Lorazepam* (Lorazepam*) 1 Mg Tablet, 0.5-1 MG PO BID Y for ANXIETY, #18 TAB Prov:URSULA SHARPE MD 07/10/16 Alprazolam* (Xanax*) 0.5 Mg Tab, 0.5 MG PO Q8H Y for ANXIETY, #10 TAB Prov:VERONICA MCGINNIS PA-C 07/05/16 Reported Medications [Bc Pills] No Conflict Check 10/26/12 Allergies Allergies: Coded Allergies: No Known Allergy (Unverified , 02/02/17) PMhx/Soc History of Surgery: Yes (d and c ) Anesthesia Reaction: No Hx Neurological Disorder: No Hx Respiratory Disorders: No Hx Cardiac Disorders: Yes (htn ) Hx Psychiatric Problems: No Hx Miscellaneous Medical Probl: No Hx Alcohol Use: No Hx Substance Use: No Hx Tobacco Use: No Smoking Status: Never smoker FmHx Family History: No diabetes Physical Exam Vitals Vital Signs Date Time Temp Pulse Resp B/P Pulse Ox O2 Delivery O2 Flow Rate FiO2 02/02/17 13:40 98.0 102 17 136/95 100 Physical Exam General: well developed, well nourished, alert, nontoxic, no distress Head: normocephalic, atraumatic Neck: Supple, nontender, no lymphadenopathy, no midline tenderness Oropharynx: no tonsilar erythema or edema, uvula midline, no exudates, no kissing tonsils, no drooling Respiratory: Clear to auscaultation bilaterally, speaks in full sentences, no use of accesory muscles or labored breathing, no rales, ronchi, or wheezing Cardiovascular: RRR, No murmurs GI: soft, non tender, non distended, negative murphys sign, negative mcburneys point tenderness, no cva tenderness bilaterally, no rebound or guarding Back: no midline tenderness, no step offs or bony abnormalities, sensation to light touch in tact Result Diagram: 02/02/17 1454 02/02/17 1454 Results 24 hrs Laboratory Tests Test 02/02/17 14:54 White Blood Count 4.210^3/ul Red Blood Count 3.9810^6/ul Hemoglobin 12.8g/dl Hematocrit 37.0% Mean Corpuscular Volume 93.0fl Mean Corpuscular Hemoglobin 32.2pg Mean Corpuscular Hemoglobin Concent 34.6g/dl Red Cell Distribution Width 12.4% Platelet Count 60216^3/UL Mean Platelet Volume 10.1fl Neutrophils % 59.7% Lymphocytes % 29.3% Monocytes % 8.6% Eosinophils % 1.7% Basophils % 0.5% Nucleated Red Blood Cells % 0.0/100WBC Neutrophils # 2.510^3/ul Lymphocytes # 1.210^3/ul Monocytes # 0.410^3/ul Eosinophils # 0.110^3/ul Basophils # 0.010^3/ul Nucleated Red Blood Cells # 0.010^3/ul Prothrombin Time 12.9Sec Prothrombin Time Ratio 1.0 INR International Normalized Ratio 0.97 Activated Partial Thromboplast Time 30.3Sec Sodium Level 141mmol/L Potassium Level 4.0mmol/L Chloride Level 101mmol/L Carbon Dioxide Level 28mmol/L Anion Gap 16 Blood Urea Nitrogen 15mg/dl Creatinine 0.74mg/dl Glucose Level 96mg/dl Calcium Level 9.8mg/dl Troponin I < 0.012ng/ml Procedures/MDM 31-year-old is here because she has chest pain. She is well-appearing in no distress. She has hypertension but aside from that no other cardiac risk factors and she has no cardiac past medical history. She is well-appearing in no distress she does appear anxious and this may be related to anxiety versus musculoskeletal. EKG showed no signs of acute coronary syndrome furthermore chest x-ray was normal and labs including troponin were negative. Recommended this patient follow up with her primary care doctor within 48 hours or return to the emergency room for any worsening of symptoms. However this time I do believe there is suitable for outpatient management. I answered all their questions and they agreed with the plan and were discharged home. Departure Diagnosis: Primary Impression: Chest pain Condition: Stable Patient Instructions: Chest Pain, Uncertain Cause Additional Instructions: Call your primary care doctor TOMORROW for an appointment during the next 1-2 days.See the doctor sooner or return here if your condition worsens before your appointment time. RADHA WEBSTER PA-C Feb 02, 2017 15:57
== END 2017-02-02 16:00 | disposition home or self-care (01) ==
LOC: FTE 13:38
DX: R07.9 Chest pain, unspecified (principal); I10 Essential (primary) hypertension
CPT/HCPCS: 71010; 80048; 84484; 85025; 85610; 85730; 93005

== ENCOUNTER 2017-06-26 19:32 | Emergency (ER) | payer BC ==
[~2017-06-26] VITALS: Ht 172.7 cm; Wt 49.5 kg
[~2017-06-26 19:32] MED LIST changes: +IBUP-1542 PO
[2017-06-26 19:35] VITALS: Ht 172.7 cm; Wt 49.5 kg
[2017-06-26] MEDS ORDERED: NICARDipine HCL 30 MG CAPSULE PO ONE ×2 (20:30→21:30)
[2017-06-26] MEDS ORDERED: AMLO-218 PO (22:16)
--- NOTE | 2017-06-26 22:20 | ERD ---
ER Documentation Chief Complaint Date/Time DATE: 06/26/17 TIME: 22:18 Chief Complaint Pt reports stopped HTN meds r/t low bp, c/o L goss FRANKLIN This a 31-year-old female who complains of uncontrolled blood pressure today. She says she had a headache and she and her blood pressure was high so she checked it the elevated numbers 180 systolic. She said she took 1 of her blood pressure pills and her headache is now gone. She states that she does not like her blood pressure medication and does not take it very often because it makes her dizzy. She says she is very sensitive to blood pressure medications and has gone through several in the past with her physician because of side effects she ends up not taking them or having to switch them. No focal neurological complaints such as numbness weakness visual change or speech change. ROS All systems reviewed and are negative except as per history of present illness. Medications Home Meds Active Scripts Amlodipine Besylate* (Norvasc*) 10 Mg Tablet, 10 MG PO DAILY, #30 TAB Prov:EUGENIO SIMMONS DO 06/26/17 Ibuprofen* (Motrin*) 600 Mg Tab, 600 MG PO QID, #30 TAB Prov:RADHA WEBSTER PA-C 02/02/17 Metronidazole* (Metrogel*) 0.75% -45 Gram Gel, 1 APPLIC TOP BID for 7 Days, #1 TUB Prov:KELI GAYTAN PA-C 11/27/16 Naproxen* (Naprosyn*) 500 Mg Tablet, 500 MG PO BID Y for PAIN AND/OR INFLAMMATION, #30 TAB Prov:KELI GAYTAN PA-C 11/27/16 Lorazepam* (Lorazepam*) 1 Mg Tablet, 0.5-1 MG PO BID Y for ANXIETY, #18 TAB Prov:URSULA SHARPE MD 07/10/16 Alprazolam* (Xanax*) 0.5 Mg Tab, 0.5 MG PO Q8H Y for ANXIETY, #10 TAB Prov:VERONICA MCGINNIS PA-C 07/05/16 Reported Medications [Bc Pills] No Conflict Check 10/26/12 Allergies Allergies: Coded Allergies: No Known Allergy (Unverified , 02/02/17) PMhx/Soc History of Surgery: Yes (d and c ) Anesthesia Reaction: No Hx Neurological Disorder: No Hx Respiratory Disorders: No Hx Cardiac Disorders: Yes (htn ) Hx Psychiatric Problems: No Hx Miscellaneous Medical Probl: No Hx Alcohol Use: No Hx Substance Use: No Hx Tobacco Use: No Smoking Status: Never smoker FmHx Family History: No coronary disease Physical Exam Vitals Vital Signs Date Time Temp Pulse Resp B/P Pulse Ox O2 Delivery O2 Flow Rate FiO2 06/26/17 21:30 84 17 144/89 98 Room Air 06/26/17 20:55 73 17 164/101 98 Room Air 06/26/17 20:19 82 20 171/104 100 Room Air 06/26/17 19:35 97.9 100 16 192/110 98 Physical Exam Const: Well-developed, well-nourished Head: Atraumatic, normocephalic Eyes: Normal Conjunctiva, PERRLA, EOMI, normal sclera, no nystagmus ENT: Normal External Ears, Nose and Mouth, moist mucus membranes. Neck: Full range of motion. No meningismus, no lymphadenopathy. Resp: Clear to auscultation bilaterally, no wheezing, rhonchi, rales Cardio: Regular rate and rhythm, no murmurs, S1 S2 present Abd: Soft, non tender x 4, non distended. Normal bowel sounds, no guarding or rebound, no pulsitile abdominal masses or bruits Skin: No petechiae or rashes, no ecchymosis , no maculopapular rash Back: No midline or flank tenderness Ext: No cyanosis, or edema, FROM x 4, normal inspection, neurovascularly intact x 4 Neur: Awake and alert, STR 5/5 x 4, sensation intact x 4, no focal findings, cerebellum intact Psych: Normal Mood and Affect Results 24 hrs Current Medications Medications (Trade) Dose Ordered Sig/Consuelo Route PRN Reason Start Time Stop Time Status Last Admin Dose Admin Nicardipine HCl (Cardene) 30 mg ONCE ONCE PO 06/26/17 20:30 06/26/17 20:31 DC 06/26/17 20:26 Nicardipine HCl (Cardene) 30 mg ONCE ONCE PO 06/26/17 21:30 06/26/17 21:31 DC Procedures/MDM Patient's blood pressure decreased to 140s over 90s after Cardene. We will discharge home on Norvasc Patient does not need for any further workup the patient does not have a headache Departure Diagnosis: Primary Impression: Uncontrolled hypertension Condition: Stable Patient Instructions: High Blood Pressure (Hypertension) EUGENIO SIMMONS DO Jun 26, 2017 22:20
[2017-06-26 23:20] VITALS: BP 136/92; PULSE 90; RESP 16
== END 2017-06-26 23:20 | disposition home or self-care (01) ==
LOC: E/R 19:32
DX: I10 Essential (primary) hypertension (principal)
CPT/HCPCS: Z7502; Z7610; 99283

== ENCOUNTER 2017-07-12 21:51 | Inpatient (IN) | END 2017-07-15 16:40 | disposition home or self-care (01) | DRG 305 | DX: I16.9 Hypertensive crisis, unspecified (principal); F41.9 Anxiety disorder, unspecified; I10 Essential (primary) hypertension; R00.2 Palpitations; Z91.14 Patient's other noncompliance with medication regimen; R94.31 Abnormal electrocardiogram [ECG] [EKG]; R74.8 Abnormal levels of other serum enzymes ==

== ENCOUNTER 2017-09-26 19:54 | Emergency (ER) | payer BC ==
[~2017-09-26] VITALS: Ht 157.5 cm; Wt 49.7 kg
[~2017-09-26 19:54] MED LIST changes: +ACET325T40 PO; -ALPR0.5T PO; +ASPI-664 PO; -BC PILLS; +CLON-379 PO; +DOCU-216 PO; +FAMO20TA18 PO; -IBUP-1542 PO; +LORA-441 PO; -LORA1TAB PO; -METGEL45 TOP; -NAPR-260 PO
[2017-09-26 19:57] VITALS: Ht 157.5 cm; Wt 49.7 kg
[2017-09-26 22:26] LABS: BASOPHILS % 0.2 % (0.0-2.0); EOSINOPHILS % 0.5 % (0.0-7.0); HEMATOCRIT 35.3 % (37.0-47.0); HEMOGLOBIN 12.1 g/dl (12.0-16.0); LYMPHOCYTES # 1.9 10^3/ul (0.8-2.9); LYMPHOCYTES % 47.1 % (15.0-51.0); MEAN CORPUSCULAR HEMOGLOBIN 31.6 pg (29.0-33.0); MEAN CORPUSCULAR HGB CONC 34.3 g/dl (32.0-37.0); MEAN CORPUSCULAR VOLUME 92.2 fl (82.0-101.0); MEAN PLATELET VOLUME 9.5 fl (7.4-10.4); MONOCYTE # 0.4 10^3/ul (0.3-0.9); NEUTROPHIL # 1.7 10^3/ul (1.6-7.5); PLATELET COUNT 212 10^3/UL (140-415); RED BLOOD COUNT 3.83 10^6/ul (4.20-5.40); RED CELL DISTRIBUTION WIDTH 11.9 % (11.5-14.5); WHITE BLOOD COUNT 4.1 10^3/ul (4.8-10.8)
[2017-09-26 22:26] LABS: ADD UMIC NO; UR ASCORBIC ACID NEGATIVE (NEGATIVE); UR BILIRUBIN (Dip) NEGATIVE (NEGATIVE); UR BLOOD (Dip) NEGATIVE (NEGATIVE); UR CLARITY CLEAR (CLEAR); UR COLOR STRAW (YELLOW); UR GLUCOSE (Dip) NEGATIVE (NEGATIVE); UR KETONES (Dip) 1+ mg/dL (NEGATIVE); UR LEUKOCYTE ESTERASE (Dip) NEGATIVE Leu/ul (NEGATIVE); UR NITRITE (Dip) NEGATIVE (NEGATIVE); UR SPECIFIC GRAVITY (Dip) 1.004 (1.003-1.030); UR TOTAL PROTEIN (Dip) NEGATIVE (NEGATIVE); UR UROBILINOGEN (Dip) NEGATIVE (NEGATIVE)
--- NOTE | 2017-09-26 23:22 | RADRPT ---
PROCEDURE: US OB. CLINICAL INDICATION: Pelvic pain, light vaginal bleeding times 1 day. Clinical estimate gestation al age is 5 weeks 0 days with estimated date of delivery 05/29/2018 TECHNIQUE: Transabdominal views of the pelvis are available for review. COMPARISON: No prior studies are available for comparison. FINDINGS: [place]-rump length:0.23 cm, 5 weeks 5 days gestational age Mean gestational sac diameter: 1.62 cm, 6 weeks 2 days gestational age heart rate:163 beats per minute Ultrasound estimated gestational age:5 weeks 5 days based on crown-rump length and 6 weeks 0 days b ased on crown-rump length and mean gestational sac diameter. Estimated date of delivery: 05/22/2018 based on crown-rump length and mean gestational sac diameter . No ovarian or adnexal mass lesion is seen. There is no free fluid. Color flow and spectral analysis demonstrates normal arterial and venous flow in both ovaries. IMPRESSION: 1. Single live intrauterine with an estimated gestational age of 5 weeks 5 days based on ultrasound measurement. RPTAT: HJES .Ed Kent MD, Date Time Electronically viewed and signed by .Ed Kent MD, on 09/26/2017 23:22 .S/
[2017-09-26] MEDS ORDERED: ACET325T33 PO (23:28)
--- NOTE | 2017-09-27 00:22 | ERD ---
ER Documentation Chief Complaint Chief Complaint 2 weeks, , pelvic pain, vomiting HPI This is a 31-year-old female presenting to the emergency department stating that she has on and off pelvic pain with mild vaginal bleeding for the past 2 days. Patient states that she just went to urgent care today and she found out that she was at urgent care today. Admits to having nausea with with a couple episodes of vomiting the past week. She denies any fever, dysuria. ROS All systems reviewed and are negative except as per history of present illness. Medications Home Meds Active Scripts Acetaminophen* (Tylenol*) 325 Mg Tablet, 2 TAB PO Q6 Y for PAIN AND OR ELEVATED TEMP, #30 TAB Prov:SHAKIR KELLER PA-C 09/26/17 Clonidine Hcl* (Clonidine Hcl*) 0.1 Mg Tab, 0.1 MG PO Q6 for for sbp >160 for 14 Days, TAB Prov:DARNELL CLARKE MD 07/15/17 Famotidine* (Famotidine*) 20 Mg Tablet, 20 MG PO DAILY for 7 Days, TAB Prov:DARNELL CLARKE MD 07/15/17 Docusate Sodium (Dok) 100 Mg Capsule, 100 MG PO BID Y for CONSTIPATION for 10 Days, CAP Prov:DARNELL CLARKE MD 07/15/17 Lorazepam* (Ativan*) 0.5 Mg Tablet, 0.5 MG PO BID Y for anxiety for 7 Days, TAB Prov:DARNELL CLARKE MD 07/15/17 Aspirin* (Aspirin* EC) 81 Mg Tablet.dr, 81 MG PO DAILY for 28 Days Prov:DARNELL CLARKE MD 07/15/17 Acetaminophen (MAPAP) 325 Mg Tablet, 650 MG PO Q6H Y for PAIN AND OR ELEVATED TEMP for 10 Days, TAB Prov:DARNELL CLARKE MD 07/15/17 Allergies Allergies: Coded Allergies: amlodipine (Verified Allergy, Intermediate, headache, chest pain, palpitations, shaking, nausea, 07/13/17) lisinopril (Verified Allergy, Intermediate, headache, chest pain, palpitations, shaking, nausea, 07/13/17) losartan (Verified Allergy, Intermediate, headache, chest pain, palpitations, shaking, nausea, 07/13/17) metoprolol (Verified Allergy, Intermediate, shaking, headache, palpitations, nausea, feeling hot/cold, 07/13/17) potassium (Verified Allergy, Intermediate, headache, chest pain, palpitations, shaking, nausea, 07/13/17) propranolol (Unverified Allergy, Intermediate, Headache, chest pain, palpiatations, shaking, nausea, 07/13/17) PMhx/Soc History of Surgery: Yes (D&C (Dec 2016)) Anesthesia Reaction: No Hx Neurological Disorder: Yes (occasional headaches) Hx Respiratory Disorders: No Hx Cardiac Disorders: Yes (HTN) Hx Psychiatric Problems: No Hx Miscellaneous Medical Probl: No Hx Alcohol Use: No Hx Substance Use: No Hx Tobacco Use: No Smoking Status: Never smoker Physical Exam Vitals Vital Signs Date Time Temp Pulse Resp B/P Pulse Ox O2 Delivery O2 Flow Rate FiO2 09/26/17 19:57 98.0 98 20 161/93 100 Physical Exam Const: [] Head: Atraumatic Eyes: Normal Conjunctiva ENT: Normal External Ears, Nose and Mouth. Neck: Full range of motion..~ No meningismus. Resp: Clear to auscultation bilaterally Cardio: Regular rate and rhythm, no murmurs Abd: Soft, non tender, non distended. Normal bowel sounds Skin: No petechiae or rashes Back: No midline or flank tenderness Ext: No cyanosis, or edema Neur: Awake and alert Psych: Normal Mood and Affect Result Diagram: 09/26/172209 Results 24 hrs Laboratory Tests Test 09/26/17 22:00 09/26/17 22:10 Urine Color STRAW Urine Clarity CLEAR Urine pH 6.0 Urine Specific [place] 1.004 Urine Ketones 1+mg/dL Urine Nitrite NEGATIVEmg/dL Urine Bilirubin NEGATIVEmg/dL Urine Urobilinogen NEGATIVEmg/dL Urine Leukocyte Esterase NEGATIVELeu/ul Urine Hemoglobin NEGATIVEmg/dL Urine Glucose NEGATIVEmg/dL Urine Total Protein NEGATIVEmg/dl White Blood Count 4.110^3/ul Red Blood Count 3.8310^6/ul Hemoglobin 12.1g/dl Hematocrit 35.3% Mean Corpuscular Volume 92.2fl Mean Corpuscular Hemoglobin 31.6pg Mean Corpuscular Hemoglobin Concent 34.3g/dl Red Cell Distribution Width 11.9% Platelet Count 40981^3/UL Mean Platelet Volume 9.5fl Neutrophils % 42.0% Lymphocytes % 47.1% Monocytes % 10.0% Eosinophils % 0.5% Basophils % 0.2% Nucleated Red Blood Cells % 0.0/100WBC Neutrophils # 1.710^3/ul Lymphocytes # 1.910^3/ul Monocytes # 0.410^3/ul Eosinophils # 0.010^3/ul Basophils # 0.010^3/ul Nucleated Red Blood Cells # 0.010^3/ul Beta HCG, Quantitative 59965.0mIU/ml Procedures/MDM This is a 31-year-old female presenting to the emergency room A1 who is 5 weeks presenting complaining of mild pelvic pain with vaginal bleeding. There is no evidence of complete , urinary tract infection. Beta hCG was 14736. OB ultrasound stated - Single live intrauterine with an estimated gestational age of 5 weeks 5 days based on ultrasound measurement. 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 I have discussed with her to return to the ER for any worsening signs or symptoms. She understands and agrees with this plan Departure Diagnosis: Primary Impression: Vaginal bleeding in patient at less than 20 weeks ges... Condition: Stable Patient Instructions: Bleeding During Early , Possible Miscarriage ( Threatened ) Additional Instructions: FOLLOW UP WITH YOUR PRIMARY CARE PHYSICIAN TOMORROW.Return to this facility if you are not improving as expected. Return to this facility if you are not improving as expected. SHAKIR KELLER PA-C Sep 27, 2017 00:20
== END 2017-09-26 23:56 | disposition home or self-care (01) ==
LOC: FTE 19:54
DX: O20.9 Hemorrhage in early pregnancy, unspecified (principal); R10.2 Pelvic and perineal pain; O10.011 Pre-existing essential hypertension complicating pregnancy, first trimester; Z3A.01 Less than 8 weeks gestation of pregnancy; Z79.82 Long term (current) use of aspirin
CPT/HCPCS: 36415; 76801; 81003; 84702; 85025; 86900; 86901; Z7502

== ENCOUNTER 2017-10-29 03:10 | Emergency (ER) | END 2017-10-29 07:52 | disposition home or self-care (01) ==

== ENCOUNTER 2019-04-11 08:16 | Emergency (ER) | payer BC ==
[~2019-04-11] VITALS: Wt 48.3 kg
[~2019-04-11 08:16] MED LIST changes: +ACET325T33 PO; +ACET500C5 PO; -ASPI-664 PO; +ASPI-817 PO; +CEPH-443 PO; +ONDA4TAB8 PO
[2019-04-11 08:19] VITALS: PULSE 80; RESP 20
[2019-04-11] MEDS ORDERED: IBUP-1542 PO (09:35)
--- NOTE | 2019-04-11 09:39 | ERD ---
ER Documentation Chief Complaint Chief Complaint pain behind r. scapula, heard a "crack" 2 days ago. UTO bp x2 HPI 33-year-old female presents complaining of right shoulder and under arm pain. Patient states that she was carrying her baby when she began having right-sided pain on her right under arm. This occurred approximately 2 days ago. She reports pain localized to that area. She reports no fevers chills or hemoptysis or sputum production. She reports no other trauma. ROS All systems reviewed and are negative except as per history of present illness. Medications Home Meds Active Scripts Ibuprofen* (Ibuprofen*) 600 Mg Tablet, 600 MG PO Q6 for pain, #30 TAB Prov:YORDY ALEXIS 04/11/19 Ondansetron Hcl* (Zofran*) 4 Mg Tablet, 4 MG PO Q6H for NAUSEA AND/OR VOMITING, #10 TAB Prov:BEBO GLORIA MD 06/18/18 Cephalexin* (Keflex*) 500 Mg Capsule, 500 MG PO QID for 5 Days, CAP Prov:URSULA SHARPE MD 10/29/17 Acetaminophen* (Tylophen*) 500 Mg Capsule, 1 CAP PO Q6H PRN for PAIN AND OR ELEVATED TEMP, #15 CAP Prov:URSULA SHARPE MD 10/29/17 Acetaminophen* (Tylenol*) 325 Mg Tablet, 2 TAB PO Q6 PRN for PAIN AND OR ELEVATED TEMP, #30 TAB Prov:SHAKIR KELLER PA-C 09/26/17 Clonidine Hcl* (Clonidine Hcl*) 0.1 Mg Tab, 0.1 MG PO Q6 for for sbp >160 for 14 Days, TAB Prov:DARNELL CLARKE MD 07/15/17 Famotidine* (Famotidine*) 20 Mg Tablet, 20 MG PO DAILY for 7 Days, TAB Prov:DARNELL CLARKE MD 07/15/17 Docusate Sodium (Dok) 100 Mg Capsule, 100 MG PO BID PRN for CONSTIPATION for 10 Days, CAP Prov:DARNELL CLARKE MD 07/15/17 Lorazepam* (Ativan*) 0.5 Mg Tablet, 0.5 MG PO BID PRN for anxiety for 7 Days, TAB Prov:DARNELL CLARKE MD 07/15/17 Aspirin* (Aspirin* EC) 81 Mg Tablet.dr, 81 MG PO DAILY for 28 Days Prov:DARNELL CLARKE MD 07/15/17 Acetaminophen (MAPAP) 325 Mg Tablet, 650 MG PO Q6H PRN for PAIN AND OR ELEVATED TEMP for 10 Days, TAB Prov:DARNELL CLARKE MD 07/15/17 Allergies Allergies: Coded Allergies: amlodipine (Verified Allergy, Intermediate, headache, chest pain, palpitations, shaking, nausea, 07/13/17) lisinopril (Verified Allergy, Intermediate, headache, chest pain, palpitations, shaking, nausea, 07/13/17) losartan (Verified Allergy, Intermediate, headache, chest pain, palpitations, shaking, nausea, 07/13/17) metoprolol (Verified Allergy, Intermediate, shaking, headache, palpitations, nausea, feeling hot/cold, 07/13/17) potassium (Verified Allergy, Intermediate, headache, chest pain, palpitations, shaking, nausea, 07/13/17) propranolol (Unverified Allergy, Intermediate, Headache, chest pain, palp iatations, shaking, nausea, 07/13/17) PMhx/Soc History of Surgery: Yes (D&C (Dec 2016)) Anesthesia Reaction: No Hx Neurological Disorder: Yes (occasional headaches) Hx Respiratory Disorders: No Hx Cardiac Disorders: Yes (PIH) Hx Psychiatric Problems: No Hx Miscellaneous Medical Probl: No Hx Alcohol Use: No Hx Substance Use: No Hx Tobacco Use: No Physical Exam Vitals Vital Signs Date Temp Pulse Resp B/P (MAP) Pulse Ox O2 O2 Flow FiO2 Time Delivery Rate 04/11/19 98.7 80 20 100 08:19 Physical Exam GENERAL: The patient is well developed and appropriate for usual state of health in no apparent distress HEENT: Pupils equal, round, and reactive to light. EOMI. There is no scleral icterus. NECK: C-spine is soft and supple, there is no meningismus. There is no cervical lymphadenopathy. LUNGS: Clear to auscultation bilaterally. There are no rales, wheezes or rhonchi. There is mild tenderness to palpation about the right anterior and lateral chest wall. No crepitus. No obvious trauma. HEART: Regular rate and rhythm, no murmurs, clicks, rubs or gallops. Abdomen: Soft, nontender, nondistended with no right upper quadrant tenderness or CVA tenderness Psych: She has a somewhat pressured speech and anxious affect and demeanor. Procedures/MDM Patient was taken to a room, seen and examined Radiology: Chest x-ray was appreciated Medical decision makin-year-old presents to the emergency department with what appears to be a musculoskeletal type discomfort of her chest wall. Patient's chest x-ray shows no signs of pneumothorax, pneumonia or other significant trauma. Patient's clinical examination shows no evidence of infection or other high-risk issues. Overall, patient is clinically nontoxic and seems appropriate for outpatient supportive care. Departure Diagnosis: Primary Impression: Shoulder pain Condition: Stable Patient Instructions: Shoulder Pain (Uncertain Cause) YORDY ALEXIS Apr 11, 2019 09:39
== END 2019-04-11 09:47 | disposition home or self-care (01) ==
LOC: FTE 08:16
DX: M25.511 Pain in right shoulder (principal); Z79.82 Long term (current) use of aspirin
CPT/HCPCS: 71045; Z7502